=== PATIENT | female | born 1985 | race Caucasian/White ===

== ENCOUNTER 2019-03-22 16:23 | Emergency (ER) | payer SELFPAY ==
[~2019-03-22] VITALS: Ht 160 cm; Wt 53.2 kg
[2019-03-22 16:26] VITALS: Ht 160 cm; Wt 53.2 kg
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
[2019-03-22] MEDS ORDERED: ACET325T33 PO (17:28)
[2019-03-22] MEDS ORDERED: IBUP-1561 PO (17:28)
[2019-03-22] MEDS ORDERED: LORA-441 PO (17:30)
[2019-03-22 17:50] VITALS: BP 102/56; PULSE 62; RESP 18
== END 2019-03-22 17:52 | disposition home or self-care (01) ==
LOC: FTE 16:23
DX: M54.2 Cervicalgia (principal)
CPT/HCPCS: 99283